=== PATIENT | female | born 1950 | race Caucasian/White ===

== ENCOUNTER 2016-03-25 05:47 | Day surgery (SDC) | payer OTHER ==
[2016-03-21 12:09] VITALS: BMI 26.3
[2016-03-25] MEDS ORDERED: KETAMINE HCL 500 MG/10 ML VIAL ONE (07:26)
[2016-03-25] MEDS ORDERED: LACTATED RINGERS SOLUTION 1,000 ML IV SCH (08:45)
[2016-03-25 08:52] VITALS: TEMP 97.8
[2016-03-25 08:59] VITALS: BP 148/80; PULSE 77
== END 2016-03-25 08:50 ==
LOC: FECT 05:47
PROVIDERS: ATTEND Psychiatry & Neurology Psychiatry
PROC: GZB4ZZZ Other Electroconvulsive Therapy (ICD-10-PCS; principal; 2016-03-25 08:45)
DX: F33.2 Major depressive disorder, recurrent severe without psychotic features (principal)
CPT/HCPCS: 90870; 94760

== ENCOUNTER 2016-03-28 05:45 | Day surgery (SDC) | payer OTHER ==
[2016-03-25 08:57] VITALS: BMI 26.3
[2016-03-28] MEDS ORDERED: ONDANSETRON 4 MG/2 ML VIAL IVPUSH PRN (06:23)
[2016-03-28] MEDS ORDERED: LACTATED RINGERS SOLUTION 1,000 ML IV SCH (06:30)
--- NOTE | 2016-03-28 07:24 | HP ---
Admitting History and Physical - Admission History of Present Illness: patient is a 65y/o female with a past medical history of bipolar disorder, depression, ankolysing sponditis, KRISSY, and brain injury. Patient present for ECT her last ECT was 03/25/15. She resides at [facility] [place]. she reports feeling well, she reports and improvement of depressive symptoms since starting ECT. patient denies any changes to medication or illnesses. she denies any suicidal or homicidal ideation. 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) Pulmonary: Yes: Sleep Apnea Psych: Yes: Bipolar, Depression - Smoking History Smoking history: Former smoker Have you smoked in the past 12 months: No If you are a former smoker, when did you quit?: 1969 - Alcohol/Substance Use Hx Alcohol Use: Yes (SOCIALLY) - Social History Usual Living Arrangement: Yes: Other (psychiatric facility) ADL: Independent History of Recent Travel: No Home Medications - Allergies Allergies/Adverse Reactions: Allergies Allergy/AdvReac Type Severity Reaction Status Date / Time No Known Drug Allergies Allergy Verified 02/21/16 07:14 - Home Medications Home Medications: Ambulatory Orders Calcium Carbonate [Calcium] 600 mg PO DAILY 01/25/16 [place] Carbonate [Lithobid] 300 mg PO BID 01/25/16 Lorazepam 1 mg PO PRN PRN 01/25/16 Mirtazapine [Remeron -] 30 mg PO HS 01/25/16 [place]-3/Dha/Epa/Fish Oil [Fish Oil Conc 1,000 mg Softgel] 1,000 mg PO DAILY 07/06 Venlafaxine HCl ER [Effexor Xr -] 225 mg PO DAILY 01/25/16 Divalproex Sodium [Depakote] 250 mg PO BID 03/13/16 Family Disease History - Family Disease History Family History: Unremarkable Review of Systems - Review of Systems Constitutional: reports: No Symptoms Eyes: reports: No Symptoms HENT: reports: No Symptoms Neck: reports: No Symptoms Cardiovascular: reports: No Symptoms Respiratory: reports: No Symptoms Gastrointestinal: reports: No Symptoms Genitourinary: reports: No Symptoms Musculoskeletal: reports: No Symptoms Integumentary: reports: No Symptoms Neurological: reports: No Symptoms Endocrine: reports: No Symptoms Hematology/Lymphatic: reports: No Symptoms Psychiatric: reports: Depression Physical Examination Findings/Remarks: reviewed 02/05/16 Constitutional: Yes: Well Nourished, No Distress, Calm Eyes: Yes: WNL, Conjunctiva Clear, EOM Intact HENT: Yes: WNL, Atraumatic, Normocephalic Neck: Yes: WNL, Supple, Trachea Midline Cardiovascular: Yes: WNL, Regular Rate and Rhythm, S1, S2 Respiratory: Yes: WNL, Regular, CTA Bilaterally Gastrointestinal: Yes: WNL, Normal Bowel Sounds, Soft ...Rectal Exam: Yes: Deferred Renal/: Yes: WNL Musculoskeletal: Yes: WNL Extremities: Yes: WNL Edema: No Integumentary: Yes: WNL Neurological: Yes: WNL, Alert, Oriented ...Motor Strength: WNL Psychiatric: Yes: WNL, Alert, Oriented Labs: reviewed 02/05 Imaging - Results EKG: Image Reviewed (nsr with no ectopy) Assessment/Plan patient is a 65 y/o female that presents for ECT. patient has received ect in the past and denies any adverse reaction to anesthesia labs and EkG reviewed pt is low risk for ect informed consent, risks and benefits to be obtained by Dr Fernandez
[2016-03-28] MEDS ORDERED: KETAMINE HCL 500 MG/10 ML VIAL ONE (07:58)
[2016-03-28 09:14] VITALS: TEMP 98.4
[2016-03-28 09:30] VITALS: BP 141/77; PULSE 77
== END 2016-03-28 09:25 ==
LOC: FECT 05:45
PROVIDERS: ATTEND Psychiatry & Neurology Psychiatry
PROC: GZB4ZZZ Other Electroconvulsive Therapy (ICD-10-PCS; principal; 2016-03-28 08:00)
DX: F33.2 Major depressive disorder, recurrent severe without psychotic features (principal)
CPT/HCPCS: 90870; 94760

== ENCOUNTER 2016-04-01 05:43 | Day surgery (SDC) | payer OTHER ==
[2016-03-26 14:46] VITALS: BMI 25.0
[2016-04-01 06:38] VITALS: TEMP 98.4
[2016-04-01] MEDS ORDERED: KETAMINE HCL 500 MG/10 ML VIAL ONE (07:16)
[2016-04-01] MEDS ORDERED: LACTATED RINGERS SOLUTION 1,000 ML IV SCH (07:30)
[2016-04-01 08:53] VITALS: PULSE 66
[2016-04-01 08:54] VITALS: BP 123/67
== END 2016-04-01 08:40 ==
LOC: FECT 05:43
PROVIDERS: ATTEND Psychiatry & Neurology Psychiatry
PROC: GZB4ZZZ Other Electroconvulsive Therapy (ICD-10-PCS; principal; 2016-04-01 07:45)
DX: F33.2 Major depressive disorder, recurrent severe without psychotic features (principal)
CPT/HCPCS: 90870; 94760

== ENCOUNTER 2016-04-08 05:41 | Day surgery (SDC) | payer OTHER ==
[2016-03-28 11:52] VITALS: BMI 26.3
[2016-04-08] MEDS ORDERED: KETAMINE HCL 500 MG/10 ML VIAL ONE (07:18)
[2016-04-08] MEDS ORDERED: LACTATED RINGERS SOLUTION 1,000 ML IV SCH (08:15)
[2016-04-08 08:25] VITALS: PULSE 75; TEMP 98.1
[2016-04-08 08:46] VITALS: BP 140/75
== END 2016-04-08 08:51 | disposition home or self-care (01) ==
LOC: FECT 05:41
PROVIDERS: ATTEND Psychiatry & Neurology Psychiatry
PROC: GZB4ZZZ Other Electroconvulsive Therapy (ICD-10-PCS; principal; 2016-04-08 08:00)
DX: F33.2 Major depressive disorder, recurrent severe without psychotic features (principal)
CPT/HCPCS: 90870; 94760

== ENCOUNTER 2016-04-15 05:41 | Day surgery (SDC) | payer OTHER ==
[2016-04-08 11:55] VITALS: BMI 26.3
[2016-04-15] MEDS ORDERED: KETAMINE HCL 500 MG/10 ML VIAL ONE (07:12)
[2016-04-15] MEDS ORDERED: LACTATED RINGERS SOLUTION 1,000 ML IV SCH (08:00)
[2016-04-15 08:54] VITALS: BP 139/79; PULSE 66; TEMP 98.6
== END 2016-04-15 08:35 ==
LOC: FECT 05:41
PROVIDERS: ATTEND Psychiatry & Neurology Psychiatry
PROC: GZB4ZZZ Other Electroconvulsive Therapy (ICD-10-PCS; principal; 2016-04-15 07:30)
DX: F33.2 Major depressive disorder, recurrent severe without psychotic features (principal)
CPT/HCPCS: 90870; 94760

== ENCOUNTER 2016-04-22 05:38 | Day surgery (SDC) | payer OTHER ==
[2016-04-15 16:22] VITALS: BMI 26.3
[2016-04-22] MEDS ORDERED: KETAMINE HCL 500 MG/10 ML VIAL ONE (07:01)
[2016-04-22 08:40] VITALS: TEMP 98.1
[2016-04-22 08:41] VITALS: BP 145/80; PULSE 86
== END 2016-04-22 08:25 ==
LOC: FECT 05:38
PROVIDERS: ATTEND Psychiatry & Neurology Psychiatry
PROC: GZB4ZZZ Other Electroconvulsive Therapy (ICD-10-PCS; principal; 2016-04-22 07:15)
DX: F33.2 Major depressive disorder, recurrent severe without psychotic features (principal)
CPT/HCPCS: 90870; 94760

== ENCOUNTER 2016-04-29 05:39 | Day surgery (SDC) | payer OTHER ==
[2016-04-25 09:04] VITALS: BMI 26.3
--- NOTE | 2016-04-29 06:52 | HP ---
Admitting History and Physical - Admission History of Present Illness: patient is a 65 y/o female with a past medical history of bipolar disorder, depression, and ankolysing spondylitis, kieran, and brain injury. patient reports feeling well, reports an improvement in depressive symptoms since starting ect. patient denies any recent illness or medication changes. 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) Pulmonary: Yes: Sleep Apnea Psych: Yes: Bipolar, Depression - Smoking History Smoking history: Former smoker Have you smoked in the past 12 months: No If you are a former smoker, when did you quit?: 1969 - Alcohol/Substance Use Hx Alcohol Use: Yes (SOCIALLY) - Social History Usual Living Arrangement: Yes: Other ([facility]) ADL: Independent History of Recent Travel: No Home Medications - Allergies Allergies/Adverse Reactions: Allergies Allergy/AdvReac Type Severity Reaction Status Date / Time No Known Drug Allergies Allergy Verified 02/21/16 07:14 - Home Medications Home Medications: Ambulatory Orders Calcium Carbonate [Calcium] 600 mg PO DAILY 01/25/16 [place] Carbonate [Lithobid] 300 mg PO BID 01/25/16 Lorazepam 1 mg PO PRN PRN 01/25/16 Mirtazapine [Remeron -] 30 mg PO HS 01/25/16 [place]-3/Dha/Epa/Fish Oil [Fish Oil Conc 1,000 mg Softgel] 1,000 mg PO DAILY 07/06 Venlafaxine HCl ER [Effexor Xr -] 225 mg PO DAILY 01/25/16 Divalproex Sodium [Depakote] 250 mg PO BID 03/13/16 Family Disease History - Family Disease History Family History: Unremarkable Review of Systems - Review of Systems Constitutional: reports: No Symptoms Eyes: reports: No Symptoms HENT: reports: No Symptoms Neck: reports: No Symptoms Cardiovascular: reports: No Symptoms Respiratory: reports: No Symptoms Gastrointestinal: reports: No Symptoms Genitourinary: reports: No Symptoms Musculoskeletal: reports: No Symptoms Integumentary: reports: No Symptoms Neurological: reports: No Symptoms Endocrine: reports: No Symptoms Hematology/Lymphatic: reports: No Symptoms Psychiatric: reports: No Symptoms Physical Examination Vital Signs: Vital Signs Temperature 99.0 F 04/29/16 06:30 Pulse Rate 70 04/29/16 06:30 Respiratory Rate 18 04/29/16 06:30 Blood Pressure 140/73 04/29/16 06:30 O2 Sat by Pulse Oximetry (%) 94 L 04/29/16 06:30 Constitutional: Yes: Well Nourished, No Distress, Calm, Other (well appearing) Eyes: Yes: WNL, Conjunctiva Clear, EOM Intact HENT: Yes: WNL, Atraumatic, Normocephalic Neck: Yes: WNL, Supple, Trachea Midline Cardiovascular: Yes: WNL, Regular Rate and Rhythm, S1, S2 Respiratory: Yes: WNL, Regular, CTA Bilaterally Gastrointestinal: Yes: WNL, Normal Bowel Sounds, Soft ...Rectal Exam: Yes: Deferred Renal/: Yes: WNL Musculoskeletal: Yes: WNL Extremities: Yes: WNL Edema: No Edema: LUE: 4+, RUE: 4+, LLE: 3+, RLE: 3+ Peripheral Pulses WNL: Yes Peripheral Pulses: Left Radial: 4+, Right Radial: 4+, Left Doralis Pedis: 3+, Right Dorsalis Pedis: 3+, Left Femoral: 3+, Right Femoral: 3+ Integumentary: Yes: WNL Neurological: Yes: WNL, Alert, Oriented ...Motor Strength: WNL Psychiatric: Yes: WNL, Alert, Oriented Labs: reviewed 01/05 Imaging - Results EKG: Image Reviewed, Other (nsr no ischemic changes) Assessment/Plan pt is a 65 y/o female that presents for ect. patient has received ect in the past and denies any adverse reaction to anesthesia labs and ekg reviewed pt is low risk for ect informed consent risks/benefits to be obtained by Dr Fernandez
[2016-04-29] MEDS ORDERED: KETAMINE HCL 500 MG/10 ML VIAL ONE (07:24)
[2016-04-29] MEDS ORDERED: ONDANSETRON 4 MG/2 ML VIAL IVPUSH PRN (08:43)
[2016-04-29] MEDS ORDERED: ACETAMINOPHEN 325 MG TABLET (FP) PO PRN (08:43)
[2016-04-29 09:09] VITALS: TEMP 98.8
[2016-04-29 09:11] VITALS: BP 132/70; PULSE 76
--- NOTE | 2016-04-29 17:45 | EKG ---
Test Reason : Blood Pressure : / mmHG Vent. Rate : 071 BPM Atrial Rate : 071 BPM P-R Int : 178 ms QRS Dur : 094 ms QT Int : 410 ms P-R-T Axes : 065 043 063 degrees QTc Int : 445 ms NORMAL SINUS RHYTHM NORMAL ECG NO PREVIOUS ECGS AVAILABLE Confirmed by HUMBLE PRIEST MD ([id number]) on 04/29/2016 5:44:46 PM Referred By: Romain Fernandez Confirmed By:HUMBLE PRIEST MD
== END 2016-04-29 08:45 | disposition home or self-care (01) ==
LOC: FECT 05:39
PROVIDERS: ATTEND Psychiatry & Neurology Psychiatry
PROC: GZB4ZZZ Other Electroconvulsive Therapy (ICD-10-PCS; principal; 2016-04-29 07:45)
DX: F33.2 Major depressive disorder, recurrent severe without psychotic features (principal)
CPT/HCPCS: 90870; 93005; 94760

== ENCOUNTER → 2016-05-06 | Day surgery (SDC) | payer OTHER ==
[2016-04-29 11:10] VITALS: BMI 26.3
[~2016-05-06] MED LIST: KETAMINE HCL 500 MG/10 ML VIAL ONE; ONDANSETRON 4 MG/2 ML VIAL IVPUSH PRN
[2016-05-06 08:59] VITALS: TEMP 97.8
[2016-05-06 09:19] VITALS: BP 129/73; PULSE 73
== END | disposition home or self-care (01) ==
LOC: FECT 05:40
PROVIDERS: ATTEND Psychiatry & Neurology Psychiatry
PROC: GZB4ZZZ Other Electroconvulsive Therapy (ICD-10-PCS; principal; 2016-05-06 07:30)
DX: F33.2 Major depressive disorder, recurrent severe without psychotic features (principal)
CPT/HCPCS: 90870; 94760

== ENCOUNTER 2016-05-16 05:48 | Day surgery (SDC) | payer OTHER ==
[2016-05-08 15:53] VITALS: BMI 26.3
[2016-05-16 08:26] VITALS: TEMP 98.1
[2016-05-16 08:53] VITALS: BP 147/82; PULSE 82
== END 2016-05-16 08:56 | disposition home or self-care (01) ==
LOC: FECT 05:48
PROVIDERS: ATTEND Psychiatry & Neurology Psychiatry
PROC: GZB4ZZZ Other Electroconvulsive Therapy (ICD-10-PCS; principal; 2016-05-16 08:00)
DX: F33.2 Major depressive disorder, recurrent severe without psychotic features (principal)
CPT/HCPCS: 90870; 94760

== ENCOUNTER 2016-06-06 07:10 | Day surgery (SDC) | payer OTHER ==
[2016-06-04 13:06] VITALS: BMI 26.3
[2016-06-06] MEDS ORDERED: KETAMINE HCL 500 MG/10 ML VIAL ONE (07:42)
[2016-06-06] MEDS ORDERED: ONDANSETRON 4 MG/2 ML VIAL IVPUSH PRN (08:35)
[2016-06-06] MEDS ORDERED: PROMETHAZINE HCL 25 MG/1 ML VIAL IVPUSH PRN (08:36)
[2016-06-06 08:42] VITALS: TEMP 99
[2016-06-06] MEDS ORDERED: LACTATED RINGERS SOLUTION 1,000 ML IV SCH (08:45)
[2016-06-06 09:07] VITALS: BP 155/79; PULSE 82
== END 2016-06-06 09:28 | disposition home or self-care (01) ==
LOC: FECT 07:10
PROVIDERS: ATTEND Psychiatry & Neurology Psychiatry
PROC: GZB4ZZZ Other Electroconvulsive Therapy (ICD-10-PCS; principal; 2016-06-06 07:00)
DX: F33.2 Major depressive disorder, recurrent severe without psychotic features (principal)
CPT/HCPCS: 90870; 94760

== ENCOUNTER 2016-06-12 05:39 | Day surgery (SDC) | payer OTHER ==
[2016-06-12] MEDS ORDERED: KETAMINE HCL 500 MG/10 ML VIAL ONE (07:17)
[2016-06-12 08:21] VITALS: TEMP 98
[2016-06-12 08:55] VITALS: BP 124/78; PULSE 80
[2016-06-12 09:00] VITALS: BMI 26.3
== END 2016-06-12 08:55 ==
LOC: FECT 05:39
PROVIDERS: ATTEND Psychiatry & Neurology Psychiatry
PROC: GZB4ZZZ Other Electroconvulsive Therapy (ICD-10-PCS; principal; 2016-06-12 07:00)
DX: F33.2 Major depressive disorder, recurrent severe without psychotic features (principal)
CPT/HCPCS: 90870; 94760

== ENCOUNTER 2016-06-19 05:42 | Day surgery (SDC) | payer OTHER ==
[2016-06-19 07:16] VITALS: TEMP 97.8; BMI 26.1
[2016-06-19 10:14] VITALS: BP 147/70; PULSE 89
== END 2016-06-19 09:30 ==
LOC: FECT 05:42
PROVIDERS: ATTEND Psychiatry & Neurology Psychiatry
PROC: GZB4ZZZ Other Electroconvulsive Therapy (ICD-10-PCS; principal; 2016-06-19 08:00)
DX: F33.2 Major depressive disorder, recurrent severe without psychotic features (principal)
CPT/HCPCS: 90870; 94760

== ENCOUNTER 2016-06-26 05:38 | Day surgery (SDC) | payer OTHER ==
[2016-06-24 11:53] VITALS: BMI 26.1
[2016-06-26] MEDS ORDERED: KETAMINE HCL 500 MG/10 ML VIAL ONE (07:06)
[2016-06-26 08:06] VITALS: TEMP 98.6
[2016-06-26 08:32] VITALS: BP 148/87; PULSE 84
== END 2016-06-26 08:30 ==
LOC: FECT 05:38
PROVIDERS: ATTEND Psychiatry & Neurology Psychiatry
PROC: GZB4ZZZ Other Electroconvulsive Therapy (ICD-10-PCS; principal; 2016-06-26 07:30)
DX: F33.2 Major depressive disorder, recurrent severe without psychotic features (principal)
CPT/HCPCS: 90870; 94760

== ENCOUNTER 2016-07-07 05:46 | Day surgery (SDC) | payer OTHER ==
[2016-07-01 11:28] VITALS: BMI 26.1
[2016-07-07 06:38] VITALS: PULSE 70
--- NOTE | 2016-07-07 07:13 | HP ---
[id number] 65 y/o female with a past medical history of KRISSY, ? anoxic brain injury(patient denied), bipolar disorder, depression, and ankloysing spondilitis. Patient presents for ECT , her last ECT was on 06/26/16. She reports self discontinuing ECT for the last 2 sessions because she felt the treatments were ineffective. Patient reports her lithium was restarted. Denied suicidal ideas, visual or auditory hallucinations. Patient reports of being very motivated to get out of the psych facility. Denied any recent infections, no fever or chest pain, has excellent appetite. Patient in very good spirits. PAST MEDICAL HISTORY: as above. Denied cardiac history, DM ot HTN. Social History: Smoking:quit when she was around 18yrs Alcohol:occasional wine Drugs: denied Family History:Grand dfather with paranoia, colon [place] Allergies-none No Known Drug Allergies Allergy (Verified 05/08/16 15:41) HOME MEDICATIONS: Home Medications Medication Instructions Recorded Calcium Carbonate [Calcium] 600 mg PO DAILY 01/25/16 Lorazepam 1 mg PO PRN PRN 01/25/16 Mirtazapine [Remeron -] 30 mg PO HS 01/25/16 [place]-3/Dha/Epa/Fish Oil [Fish Oil 1,000 mg PO DAILY 01/25/16 Conc 1,000 mg Softgel] Venlafaxine HCl ER [Effexor Xr -] 225 mg PO DAILY 01/25/16 Divalproex Sodium [Depakote] 250 mg PO HS 03/13/16 [place] Carbonate [Eskalith -] 300 mg PO BID 06/12/16 REVIEW OF SYSTEMS CONSTITUTIONAL: Absent: fever, chills, diaphoresis, generalized weakness, malaise, loss of appetite HEENT: Absent: rhinorrhea, nasal congestion, throat pain, throat swelling, difficulty swallowing, mouth swelling, ear pain, eye pain, visual changes CARDIOVASCULAR: Absent: chest pain, syncope, palpitations, irregular heart rate, lightheadedness , peripheral edema RESPIRATORY: Absent: cough, shortness of breath, dyspnea with exertion, orthopnea, wheezing, stridor, hemoptysis GASTROINTESTINAL: Absent: abdominal pain, abdominal distension, nausea, vomiting, diarrhea, constipation, melena, hematochezia GENITOURINARY: Absent: dysuria, frequency, urgency, hesitancy, hematuria, flank pain, genital pain MUSCULOSKELETAL: Absent: myalgia, arthralgia, joint swelling, back pain, neck pain SKIN: Absent: rash, itching, pallor HEMATOLOGIC/IMMUNOLOGIC: Absent: easy bleeding, easy bruising, lymphadenopathy, frequent infections ENDOCRINE: Absent: unexplained weight gain, unexplained weight loss, heat intolerance, cold intolerance NEUROLOGIC: Absent: headache, focal weakness or paresthesias, dizziness, unsteady gait, seizure, mental status changes, bladder or bowel incontinence PSYCHIATRIC: Absent: anxiety, depression, suicidal or homicidal ideation, hallucinations. PHYSICAL EXAMINATION Vital Signs - 24 hr 07/07/16 06:35 Temperature 99 F Pulse Rate 70 Respiratory 18 Rate Blood Pressure 132/74 O2 Sat by Pulse 96 Oximetry (%) GENERAL: Awake, alert, and fully oriented, in no acute distress. Patient in good spirits HEAD: Normal with no signs of trauma. EYES: normal external eye exam,sclera anicteric, conjunctiva clear. No lid lag. EARS, NOSE, THROAT: Ears normal, nares patent, no discharges NECK: Normal range of motion, supple LUNGS: Breath sounds equal, clear to auscultation bilaterally. No wheezes, and no crackles. No accessory muscle use. HEART: Regular rate and rhythm, normal S1 and S2 without murmur ABDOMEN: Soft, nontender, not distended MUSCULOSKELETAL: Normal range of motion at all joints. No bony deformities or tenderness EXTREMITIES:no edema, non focal NEUROLOGICAL: Cranial nerves II-XII grossly intact. Normal speech. PSYCHIATRIC: Cooperative. Good eye contact. Appropriate mood and affect, motivated, cheerful. SKIN: Warm, dry, normal turgor, no rashes or lesions noted ASSESSMENT/PLAN: This is a 66 y/o female from [facility] here for ECT. Her last ECT was on 06/26/16. Patient had ECT in the past without any adverse reactions. Denied any recent infections, no fever or chest pain, has excellent appetite. Patient in very good spirits. Labs and EKG reviewed. No acute changes noted. Patient denied any recent infectuions or new complaints. pt is low risk for ECT informed consent, risks and benefits to be obtained by Dr Fernandez Visit type - Emergency Visit Emergency Visit: No - New Patient This patient is new to me today: Yes Date on this admission: 07/07/16 - Critical Care Critical Care patient: No
[2016-07-07] MEDS ORDERED: LORazepam 1 MG TABLET PO PRN (07:17)
[2016-07-07] MEDS ORDERED: KETAMINE HCL 500 MG/10 ML VIAL ONE (08:17)
[2016-07-07 09:29] VITALS: BP 142/72; TEMP 97.9
[2016-07-07] MEDS ORDERED: OMEGA-3 ACID ETHYL ESTERS (FATTY-ACIDS) 1 GM CAPSULE (FP) PO SCH (10:00)
[2016-07-07] MEDS ORDERED: LITHIUM CARBONATE 150 MG CAPSULE PO SCH (10:00)
[2016-07-07] MEDS ORDERED: CALCIUM (OYSTER SHELL) 500 MG TABLET (FP) PO SCH (10:00)
[2016-07-07] MEDS ORDERED: MIRTAZAPINE 30 MG TABLET (FP) PO SCH (22:00)
[2016-07-07] MEDS ORDERED: DIVALPROEX SODIUM 250 MG TABLET E.C. (FP) PO SCH (22:00)
== END 2016-07-07 09:32 | disposition home or self-care (01) ==
LOC: FECT 05:46 → SUATTDRO 05:46 → FECT 09:32
PROVIDERS: ATTEND Nurse Practitioner Family
PROC: GZB4ZZZ Other Electroconvulsive Therapy (ICD-10-PCS; principal; 2016-07-07 08:45)
DX: F33.2 Major depressive disorder, recurrent severe without psychotic features (principal)
CPT/HCPCS: 90870; 94760

== ENCOUNTER 2016-07-14 05:42 | Day surgery (SDC) | payer OTHER ==
[2016-07-10 09:20] VITALS: BMI 26.1
[2016-07-14 08:46] VITALS: TEMP 98.1
[2016-07-14 09:21] VITALS: BP 134/76; PULSE 66
== END 2016-07-14 09:25 | disposition home or self-care (01) ==
LOC: FECT 05:42
PROVIDERS: ATTEND Psychiatry & Neurology Psychiatry
PROC: GZB4ZZZ Other Electroconvulsive Therapy (ICD-10-PCS; principal; 2016-07-14 08:15)
DX: F33.2 Major depressive disorder, recurrent severe without psychotic features (principal)
CPT/HCPCS: 90870; 94760

== ENCOUNTER 2016-07-23 05:37 | Day surgery (SDC) | payer OTHER ==
[2016-07-15 08:14] VITALS: BMI 26.1
[2016-07-23 06:23] VITALS: TEMP 97.9
[2016-07-23] MEDS ORDERED: ONDANSETRON 4 MG/2 ML VIAL IVPUSH PRN (06:47)
[2016-07-23] MEDS ORDERED: KETAMINE HCL 500 MG/10 ML VIAL ONE (06:50)
[2016-07-23] MEDS ORDERED: LACTATED RINGERS SOLUTION 1,000 ML IV SCH (07:00)
[2016-07-23 07:09] LABS: MCH 29.5 pg (25.7-33.7); MEAN CELL VOLUME 89.3 fl (80-96); MEAN PLT VOLUME 8.3 fl (7.5-11.1); PLATELET COUNT 391 K/MM3 (134-434); RDW 12.6 % (11.6-15.6); WHITE BLOOD COUNT 7.3 K/mm3 (4.0-10.8)
[2016-07-23 07:27] LABS: ALBUMIN 4.2 g/dl (3.5-5.0); ALK PHOS 64 U/L (32-92); ANION GAP 8 (8-16); CALCIUM 9.3 mg/dl (8.4-10.2); CO2 27 mmol/L (22-28); CREATININE 0.5 mg/dl (0.6-1.3); GLUCOSE,RANDOM 99 mg/dl (74-106); SGOT/AST 15 U/L (10-42); SGPT/ALT 10 U/L (10-40); TOT PROT 7.2 g/dl (6.4-8.3)
[2016-07-23 07:30] LABS: BILIRUBIN,TOTAL < 0.3 mg/dl (0.2-1.0)
[2016-07-23 08:25] VITALS: BP 128/77; PULSE 61
== END 2016-07-23 08:15 | disposition home or self-care (01) ==
LOC: FECT 05:37
PROVIDERS: ATTEND Psychiatry & Neurology Psychiatry
PROC: GZB4ZZZ Other Electroconvulsive Therapy (ICD-10-PCS; principal; 2016-07-23 07:30)
DX: F33.2 Major depressive disorder, recurrent severe without psychotic features (principal)
CPT/HCPCS: 36415; 80053; 85027; 90870; 94760

== ENCOUNTER 2016-07-31 05:41 | Day surgery (SDC) | payer OTHER ==
[2016-07-23 12:50] VITALS: BMI 26.1
[2016-07-31 08:11] VITALS: TEMP 98
[2016-07-31 08:38] VITALS: BP 138/78; PULSE 77
== END 2016-07-31 08:25 ==
LOC: FECT 05:41
PROVIDERS: ATTEND Psychiatry & Neurology Psychiatry
PROC: GZB4ZZZ Other Electroconvulsive Therapy (ICD-10-PCS; principal; 2016-07-31 07:45)
DX: F33.2 Major depressive disorder, recurrent severe without psychotic features (principal)
CPT/HCPCS: 90870; 94760

== ENCOUNTER 2016-08-11 05:49 | Day surgery (SDC) | payer OTHER ==
[2016-08-04 16:36] VITALS: BMI 26.1
--- NOTE | 2016-08-11 06:55 | HP ---
Admitting History and Physical - Admission History of Present Illness: patient is a 66 y/o female with a past medical history of bipolar disorder, KRISSY , anoxic brain injury, and anokolysing spondilitis. Patient presents for ect, her last ect was 07/31/16. she reports feeling well, denies any recent changes to medications or illnesses. Patient reports an improvement in symptoms since starting ECT. Patient feels she is better and would like to taper down her ECT. 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) Pulmonary: Yes: Sleep Apnea Psych: Yes: Bipolar, Depression - Smoking History Smoking history: Former smoker Have you smoked in the past 12 months: No If you are a former smoker, when did you quit?: 1970 - Alcohol/Substance Use Hx Alcohol Use: Yes (SOCIALLY) History of Substance Use: reports: None - Social History Usual Living Arrangement: Yes: Other ([facility]) ADL: Independent History of Recent Travel: No Home Medications - Allergies Allergies/Adverse Reactions: Allergies Allergy/AdvReac Type Severity Reaction Status Date / Time No Known Drug Allergies Allergy Verified 05/08/16 15:41 - Home Medications Home Medications: Ambulatory Orders Calcium Carbonate [Calcium] 600 mg PO DAILY 01/25/16 Lorazepam 1 mg PO PRN PRN 01/25/16 Mirtazapine [Remeron -] 30 mg PO HS 01/25/16 [place]-3/Dha/Epa/Fish Oil [Fish Oil Conc 1,000 mg Softgel] 1,000 mg PO DAILY 07/06 Venlafaxine HCl ER [Effexor Xr -] 225 mg PO DAILY 01/25/16 Divalproex Sodium [Depakote] 250 mg PO HS 03/13/16 [place] Carbonate [Eskalith -] 300 mg PO BID 06/12/16 Family Disease History - Family Disease History Family History: Unremarkable Review of Systems - Review of Systems Constitutional: reports: No Symptoms Eyes: reports: No Symptoms HENT: reports: No Symptoms Neck: reports: No Symptoms Cardiovascular: reports: No Symptoms Respiratory: reports: No Symptoms Gastrointestinal: reports: No Symptoms Genitourinary: reports: No Symptoms Musculoskeletal: reports: No Symptoms Integumentary: reports: No Symptoms Neurological: reports: No Symptoms Endocrine: reports: No Symptoms Hematology/Lymphatic: reports: No Symptoms Psychiatric: reports: No Symptoms Physical Examination Vital Signs: Vital Signs Temperature 98.3 F 08/11/16 06:32 Pulse Rate 66 08/11/16 06:32 Respiratory Rate 16 08/11/16 06:32 Blood Pressure 145/71 08/11/16 06:32 O2 Sat by Pulse Oximetry (%) 96 08/11/16 06:32 Constitutional: Yes: Well Nourished, No Distress, Calm Eyes: Yes: WNL, Conjunctiva Clear, EOM Intact HENT: Yes: WNL, Atraumatic, Normocephalic Neck: Yes: WNL, Supple, Trachea Midline Cardiovascular: Yes: WNL, Regular Rate and Rhythm, S1, S2 Respiratory: Yes: WNL, Regular, CTA Bilaterally Gastrointestinal: Yes: WNL, Normal Bowel Sounds, Soft ...Rectal Exam: Yes: Deferred Renal/: Yes: WNL Musculoskeletal: Yes: WNL Extremities: Yes: WNL Edema: No Peripheral Pulses WNL: Yes Peripheral Pulses: Left Radial: 4+, Right Radial: 4+, Left Doralis Pedis: 3+, Right Dorsalis Pedis: 3+, Left Femoral: 3+, Right Femoral: 3+ Integumentary: Yes: WNL Neurological: Yes: WNL, Alert, Oriented ...Motor Strength: WNL Psychiatric: Yes: WNL, Alert, Oriented (reviewed 07/23/16) Imaging - Results EKG: Report Reviewed, Image Reviewed, Other (nsr no ischemic changes) Assessment/Plan pt is a 66 y/o female that presents for ect, labs and ekg reviewed, patient has received ect in the past and denies any adverse reaction to anesthesia pt is low risk for procedure informed consent, risks/benefits to be obtained by Dr Fernandez.
[2016-08-11 08:44] VITALS: BP 158/67; PULSE 71; TEMP 98.1
== END 2016-08-11 08:50 ==
LOC: FECT 05:49
PROVIDERS: ATTEND Psychiatry & Neurology Psychiatry
PROC: GZB4ZZZ Other Electroconvulsive Therapy (ICD-10-PCS; principal; 2016-08-11 07:45)
DX: F33.2 Major depressive disorder, recurrent severe without psychotic features (principal)
CPT/HCPCS: 90870; 94760

== ENCOUNTER 2016-08-22 05:37 | Day surgery (SDC) | payer OTHER ==
[2016-08-13 12:10] VITALS: BMI 26.1
[2016-08-22] MEDS ORDERED: KETAMINE HCL 500 MG/10 ML VIAL ONE (07:01)
[2016-08-22 07:49] VITALS: TEMP 97.9
[2016-08-22 08:15] VITALS: BP 148/86; PULSE 72
== END 2016-08-22 08:10 | disposition home or self-care (01) ==
LOC: FECT 05:37
PROVIDERS: ATTEND Psychiatry & Neurology Psychiatry
PROC: GZB4ZZZ Other Electroconvulsive Therapy (ICD-10-PCS; principal; 2016-08-22 07:00)
DX: F33.2 Major depressive disorder, recurrent severe without psychotic features (principal)
CPT/HCPCS: 90870; 94760

== ENCOUNTER 2016-09-02 05:38 | Day surgery (SDC) | payer OTHER ==
[2016-08-25 08:17] VITALS: BMI 26.3
[2016-09-02 08:21] VITALS: TEMP 98.7
[2016-09-02 08:25] VITALS: BP 140/78; PULSE 71
== END 2016-09-02 08:30 ==
LOC: FECT 05:38
PROVIDERS: ATTEND Psychiatry & Neurology Psychiatry
PROC: GZB4ZZZ Other Electroconvulsive Therapy (ICD-10-PCS; principal; 2016-09-02 07:45)
DX: F33.2 Major depressive disorder, recurrent severe without psychotic features (principal)
CPT/HCPCS: 90870; 94760

== ENCOUNTER 2016-09-16 05:41 | Day surgery (SDC) | payer OTHER ==
--- NOTE | 2016-09-16 07:03 | HP ---
Admitting History and Physical - Admission History of Present Illness: patient is a 66 y/o female with a past medical history of kieran, bipolar disorder , anoklysing spondilitis, and anoxic brain injury. Patient presents for ect, her last ect was 09/02/16. She reports feeling well and reports an improvement in her mood since starting ect. Patient denies any recent medication change. She denies any illnesses or hospitalizations. patient denies any suicidal or homicidal ideation, visual or auditory hallucination. 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) Pulmonary: Yes: Sleep Apnea Psych: Yes: Bipolar, Depression - Smoking History Smoking history: Former smoker Have you smoked in the past 12 months: No If you are a former smoker, when did you quit?: 1970 - Alcohol/Substance Use Hx Alcohol Use: Yes (SOCIALLY) History of Substance Use: reports: None - Social History ADL: Independent History of Recent Travel: No Home Medications - Allergies Allergies/Adverse Reactions: Allergies Allergy/AdvReac Type Severity Reaction Status Date / Time No Known Drug Allergies Allergy Verified 05/08/16 15:41 - Home Medications Home Medications: Ambulatory Orders Calcium Carbonate [Calcium] 600 mg PO DAILY 01/25/16 Lorazepam 1 mg PO PRN PRN 01/25/16 Mirtazapine [Remeron -] 30 mg PO HS 01/25/16 [place]-3/Dha/Epa/Fish Oil [Fish Oil Conc 1,000 mg Softgel] 1,000 mg PO DAILY 07/06 Venlafaxine HCl ER [Effexor Xr -] 225 mg PO DAILY 01/25/16 Divalproex Sodium [Depakote] 250 mg PO HS 03/13/16 [place] Carbonate [Eskalith -] 300 mg PO BID 06/12/16 Family Disease History - Family Disease History Family History: Unremarkable Review of Systems - Review of Systems Constitutional: reports: No Symptoms Eyes: reports: No Symptoms HENT: reports: No Symptoms Neck: reports: No Symptoms Cardiovascular: reports: No Symptoms Respiratory: reports: No Symptoms Gastrointestinal: reports: No Symptoms Genitourinary: reports: No Symptoms Breasts: reports: No Symptoms Reported Musculoskeletal: reports: No Symptoms Integumentary: reports: No Symptoms Neurological: reports: No Symptoms Endocrine: reports: No Symptoms Hematology/Lymphatic: reports: No Symptoms Psychiatric: reports: No Symptoms Physical Examination Constitutional: Yes: Well Nourished, No Distress, Calm Eyes: Yes: WNL, Conjunctiva Clear, EOM Intact HENT: Yes: WNL, Atraumatic, Normocephalic Neck: Yes: WNL, Supple, Trachea Midline Cardiovascular: Yes: WNL, Regular Rate and Rhythm, S1, S2 Respiratory: Yes: WNL, Regular, CTA Bilaterally Gastrointestinal: Yes: WNL, Normal Bowel Sounds, Soft ...Rectal Exam: Yes: Deferred Renal/: Yes: WNL Musculoskeletal: Yes: WNL Extremities: Yes: WNL Edema: No Peripheral Pulses WNL: Yes Peripheral Pulses: Left Radial: 4+, Right Radial: 4+, Left Doralis Pedis: 3+, Right Dorsalis Pedis: 3+, Left Femoral: 3+, Right Femoral: 3+ Integumentary: Yes: WNL Neurological: Yes: WNL, Alert, Oriented ...Motor Strength: WNL Psychiatric: Yes: WNL, Alert, Oriented Labs: reviewed 08/06 Imaging - Results EKG: Image Reviewed, Other (nsr no ectopy) Assessment/Plan pt is a 66 y/o female that presents for ect, she has received ect in the past and denies any adverse reaction to anesthesia, labs and ekg reviewed pt is low risk for procedure informed consent, risks/benefits to be obtained by Dr Fernandez
[2016-09-16 07:16] VITALS: BMI 28.8
[2016-09-16] MEDS ORDERED: KETAMINE HCL 500 MG/10 ML VIAL ONE (07:53)
[2016-09-16 09:15] VITALS: TEMP 98.8
[2016-09-16 09:17] VITALS: BP 140/84; PULSE 77
== END 2016-09-16 09:20 ==
LOC: FECT 05:41
PROVIDERS: ATTEND Psychiatry & Neurology Psychiatry
PROC: GZB4ZZZ Other Electroconvulsive Therapy (ICD-10-PCS; principal; 2016-09-16 07:15)
DX: F33.2 Major depressive disorder, recurrent severe without psychotic features (principal)
CPT/HCPCS: 90870; 94760